=== PATIENT | female | born 2005 | race Caucasian/White ===

== ENCOUNTER 2023-06-16 12:20 | Emergency (ER) | payer OTHER, SELFPAY ==
[2023-06-16 13:30] LABS: SARS-CoV-2 NAA Rapid Test Not Detected (NotDetected)
== END 2023-06-16 13:40 | disposition home or self-care (01) ==
LOC: CSHERS 12:20
DX: B34.9 Viral infection, unspecified (principal); Z20.822 Contact with and (suspected) exposure to COVID-19
CPT/HCPCS: 71046